=== PATIENT | male | born 1970 ===

== ENCOUNTER 2016-11-16 20:31 | Inpatient (IN) | payer BC, OTHER ==
[~2016-11-16] VITALS: Ht 177.8 cm; Wt 106.1 kg
[2016-11-17] MEDS ORDERED: LORAZEPAM 1 MG TABLET PO PRN ×2 (13:45)
[2016-11-17] MEDS ORDERED: HYDROXYZINE PAMOATE 25 MG CAPSULE PO PRN (13:45)
[2016-11-17] MEDS ORDERED: ACETAMINOPHEN 325 MG TABLET PO PRN (13:45)
[2016-11-17] MEDS ORDERED: MIRALAX 17 GM POWD.PACK PO PRN (13:45)
[2016-11-17] MEDS ORDERED: MAG HYDROX/AL HYDROX/SIMETH 30 ML LIQUID UDC PO PRN (13:45)
[2016-11-17] MEDS ORDERED: LORAZEPAM 2 MG/1 ML VIAL IM PRN (13:45)
[2016-11-17] MEDS ORDERED: CLONIDINE HCL 0.1 MG TABLET PO PRN (13:45)
[2016-11-17] MEDS ORDERED: diphenhydrAMINE 50 MG CAPSULE PO PRN (13:45)
[2016-11-17] MEDS ORDERED: IBUPROFEN 600 MG TABLET PO PRN (13:45)
[2016-11-17] MEDS ORDERED: ONDANSETRON 4 MG/2 ML VIAL IM PRN (13:45)
[2016-11-17] MEDS ORDERED: DICYCLOMINE HCL 20 MG TABLET PO PRN (13:45)
[2016-11-17] MEDS ORDERED: LOPERAMIDE HCL 2 MG CAPSULE PO PRN ×2 (13:45)
[2016-11-17] MEDS ORDERED: ONDANSETRON ODT 4 MG TAB.RAPDIS SL PRN (13:45)
[2016-11-17] MEDS ORDERED: MAGNESIUM HYDROXIDE 30 ML LIQUID UDC PO PRN (13:45)
--- NOTE | 2016-11-17 14:30 | NUR ---
PRE ASSESSMENT Pt presents in the intake room. Pt alert and oriented to name, place, and time. Perrla. skin warm and dry to touch. Explained to pt that medications would have to turned in and held at the pharmacy. VS wnl. Explained to pt about vital signs, assessments, and unit rules. No distress noted.
[2016-11-17] MEDS ORDERED: BUSP15TA3 PO ×2 (14:36→14:39)
[2016-11-17] MEDS ORDERED: CLON1TAB PO (14:38)
[2016-11-17] MEDS ORDERED: ESCI20TA37 PO (14:40)
--- NOTE | 2016-11-17 15:00 | NUR ---
ADMISSION Pt 46 y/o male admitted for marijuana klonopin dependence. Pt stated he was living with , but said that his kicked him out as soon as he arrived here. Pt alert and oriented to name, place, and time. Perrla. Skin warm and dry to touch. Respirations even and unlabored. No hand tremors nOted. Pt appears disheveled and slightly unkempt. Pt anxious and restless during assessment. Pt also with tearful episodes. Pt could not sit still for most of the assessment. Pressured speech noted. Pt states has a psychologist, but did not state his name. He just stated, he just prescribes me meds, but does not really help me. Pt was seen by Dr. Klein. Oriented pt to unit and room. Bed on lowest position with side rails x2 up for safety. Call light within reach. Pt denies any sz hx. substance hx: - marijuana smoke $50 worth daily x1 month; last used 11/16/16 $130 worth in 2 days. ( 36 years totatl) - klonopin po 1mg daily x3 months; last used 11/17/16 1mg ( total 4 years0 medical hx: OCD, anxiety, depression treatment hx: [facility] non 2004 juan menchaca [facility]
[2016-11-17 15:29] LABS: BASOPHILS # (AUTO) 0.1 K/uL (0.0-8.0); BASOPHILS % (AUTO) 0.5 % (0.0-2.0); EOSINOPHILS # (AUTO) 0.4 K/uL (0.0-0.7); EOSINOPHILS % (AUTO) 3.8 % (0.0-7.0); HEMATOCRIT 44.4 % (40-50); HEMOGLOBIN 14.5 G/DL (14.0-18.0); LYMPHOCYTES # (AUTO) 2.7 K/UL (0.8-4.8); LYMPHOCYTES % (AUTO) 26.6 % (20.5-51.5); MEAN CORPUSCULAR HGB CONC 33 g/dL (32.0-37.0); MEAN CORPUSCULAR VOLUME 94.8 FL (82.0-92.0); MONOCYTES # (AUTO) 0.5 K/UL (0.1-1.30); MONOCYTES % (AUTO) 5.3 % (0.0-11.0); NEUTROPHILS # (AUTO) 6.6 K/UL (1.8-8.9); NEUTROPHILS % (AUTO) 63.8 % (38.5-71.5); PLATELET COUNT (AUTO) 258 K/UL (150-450); RED BLOOD CELL COUNT(AUTO) 4.68 MIL/UL (4.7-6.1); RED CELL DISTRIBUTION WIDTH 13.5 % (11.5-14.5); WHITE BLOOD COUNT (AUTO) 10.3 K/UL (4.0-11.2)
[2016-11-17 15:33] LABS: ALANINE AMINOTRANSFERASE 16 U/L (16-63); ALBUMIN 3.9 g/dL (3.4-5.0); ALKALINE PHOSPHATASE 73 U/L (50-136); ASPARTATE AMINOTRANSFERASE 15 U/L (15-37); BILIRUBIN,TOTAL 0.3 mg/dL (0.2-1.0); CALCIUM 8.9 mg/dL (8.5-10.1); CARBON DIOXIDE 28 mmol/L (21-32); CHLORIDE 104 mmol/L (98-107); GFR 80 mL/min (>60); GLUCOSE 126 mg/dL (74-106); MAGNESIUM 2.1 mg/dL (1.8-2.4); POTASSIUM 3.4 mmol/L (3.5-5.1); SODIUM SERUM 141 mmol/L (136-145); TOTAL PROTEIN, SERUM 7.7 g/dL (6.4-8.2); UREA NITROGEN, BLOOD 9 mg/dL (7-18)
[2016-11-17 15:40] LABS: ETHANOL < 3 MG/DL (0-0)
[2016-11-17 15:45] LABS: HIV-1 p24 ANTIGEN NON REACTIVE (NONREACTIVE); HIV-1/2 ANTIBODY NON REACTIVE (NONREACTIVE)
[2016-11-17 16:00] VITALS: BP 115/77
[2016-11-17 16:00] LABS: *AMPHETAMINE, URINE NEGATIVE (NEGATIVE); *BARBITURATE, URINE NEGATIVE (NEGATIVE); *CANNABINOID, URINE POSITIVE (NEGATIVE); *COCCAINE, URINE NEGATIVE (NEGATIVE); *OPIATE, URINE NEGATIVE (NEGATIVE); *PHENCYCLIDINE SCREEN,URINE NEGATIVE (NEGATIVE)
[2016-11-17] MEDS ORDERED: THIAMINE HCL 200 MG/2 ML VIAL IM ONE (16:01)
--- NOTE | 2016-11-17 16:23 | NUR ---
SITTER Pt stated during assessment that he does have SI with no plan. Pt states he is not planning any attempt during his stay here in [facility]. Pt anxious and restless. Pt with tearful episodes. Pt also stated he feels depressed. Pt was seen by Dr. Hernandez. Medications were reconciled by Dr. Hernandez and with new order for 1:1 sitter to monitor for safety, noted and carried.
[2016-11-17] MEDS: busPIRone 10 MG TABLET PO SCH (16:35)
[2016-11-17] MEDS: GABAPENTIN 300 MG CAPSULE PO SCH (16:35)
[2016-11-17] MEDS: LORAZEPAM 1 MG TABLET PO SCH ×2 (16:35→21:05)
[2016-11-17] MEDS: ESCITALOPRAM OXALATE 10 MG TABLET PO SCH (16:35)
[2016-11-17] MEDS ORDERED: Medication Not On Formulary EA (Buspirone Hcl 15 MG) PO SCH (17:00)
--- NOTE | 2016-11-17 18:17 | NUR ---
END OF SHIFT Pt 46 y/o male admitted for marijuana klonopin dependence. Pt alert and oriented to name, place, and time. Perrla. Skin warm and dry to touch. Respirations even and unlabored. No hand tremors nOted. Pt appears disheveled and slightly unkempt. Pt anxious and restless during assessment. Pt also with tearful episodes at times earlier. Pressured speech noted. Bed on lowest position with side rails x2 up for safety. Call light within reach.
[2016-11-17 20:00] VITALS: BP 129/75
--- NOTE | 2016-11-17 20:00 | NUR ---
1999 Patient received awake, alert and sitting in bedside chair, speaking loudly and animatedly to 1 to 1 staff at bedside. Patient responds to nurse's greeting and introduction with a smile and, " Hi! How are you doing?!" Patient is oriented to person, place, day, date, time and his personal situation. Patient's color is pink and his skin is warm, dry and intact. Lungs are clear bilaterally and active bowel sounds are noted X 4 abdominal Quads, per auscultation. Patient states that he has just returned to his room # 316 from [facility] in recreation room and he states, " Oh, I'm going to do everything that I'm supposed to do while I'm here". Patient states further that he is eating his regular diet trays and taking fluids ad domenic with no real gastric issues so far. Vital signs are: 98.2-93-20 129/75, O2 sat 97%, CIWA 5. Patient denies any suicidal ideation. Patient states, " Oh, I just said that, at first when everything hit rock bottom, but I'm feeling much better now and I have no thoughts of any suicide or anything like that." Patient then verbalized at length to nurse, about his long time marijuana use, his family and their support, his job, where everybody around him also smokes marijuana, his "feelings of guilt" about his drug use around his son, and other various concerns that he has. Calm reassurances and positive encouragement then given to patient, who then said, " Oh thank you, I'm really starting to feel better, and I know that I made the right choice in coming here". Patient was admitted today, 11/17/16 for Marijuana and Klonopin withdrawal and he has been started on a 5-Day Ativan medication taper, which he is tolerating well so far. Patient is friendly, cooperative and verbally appropriate when interacting with nurse, though he is a bit hyperverbal and loud when speaking. Patient denies any pain or other discomforts and he voices no complaints or requests for anything. Bed is locked and in lowest position, bed rails are up X 1 and call light within patient's easy reach.
[2016-11-17] MEDS ORDERED: GABAPENTIN 300 MG CAPSULE PO SCH (21:00)
[2016-11-18] VITALS: BP 121/71
[2016-11-18 04:00] VITALS: BP 128/77
--- NOTE | 2016-11-18 06:30 | NUR ---
0630 Patient slept a total of 4 hours and he had 1 void and no stools. Total intake was 710 ml p.o. V/SS afebrile. CIWA at 0400 is 2. Patient had no Prn medications given this shift. No suicidal ideation noted. 1 to 1 staff continues at bedside. Patient was downstairs on hospital patio for approximately 45 minutes during shift, to get some air. Patient does not smoke, he states. Patient is presently sleeping soundly in supine position of comfort with eyes closed and respirations deep, unlabored at 14.
--- NOTE | 2016-11-18 07:06 | NUR ---
Start of Shift Endorsement received from nightshift nurse. Pt is a 46 y/o male admitted for Klonopin and Marijuana dependence. PT has been placed on a 5 day Ativan taper. PT is tolerating the taper well, pt is mildly withdrawing at this time AEB CIWA 2. PT is on a 1:1 at this time for safety reasons. Pt did not receive any PRN medications. Reports sleeping 6 hours. VS WNL. Full Code. PT is alert and oriented x4. Pt is in STABLE condition at this time. Remains compliant with medication and diet regimen. All needs have been met, All safety measures in place per hospital policy. Bed in lowest position, side rails up x2, call-light within reach. Will continue to monitor
[2016-11-18 08:00] VITALS: BP 122/70
[2016-11-18] MEDS: ESCITALOPRAM OXALATE 10 MG TABLET PO SCH (08:53)
[2016-11-18] MEDS: busPIRone 10 MG TABLET PO SCH ×2 (08:53→17:31)
[2016-11-18] MEDS: GABAPENTIN 300 MG CAPSULE PO SCH ×3 (08:53→20:49)
[2016-11-18] MEDS: LORAZEPAM 1 MG TABLET PO SCH ×3 (08:54→20:49)
[2016-11-18] MEDS: FOLIC ACID 1 MG TABLET PO SCH (08:54)
[2016-11-18] MEDS: MULTIVITAMINS,THERAPEUTIC TABLET PO SCH (08:54)
[2016-11-18] MEDS: DOCUSATE SODIUM 250 MG CAPSULE PO SCH (08:54)
[2016-11-18] MEDS: THIAMINE HCL 100 MG TABLET PO SCH (08:54)
[2016-11-18] MEDS ORDERED: TUBERCULIN,PURIF.PROT.DERIV. 5 TU/0.1 ML TEST ID ONE (09:00)
[2016-11-18 12:00] VITALS: BP 115/64
[2016-11-18 16:00] VITALS: BP 115/70
[2016-11-18] MEDS: DIVALPROEX 250 MG TABLET.DR PO SCH (17:32)
--- NOTE | 2016-11-18 18:56 | NUR ---
End of Shift Endorsement given to nightshift nurse. Pt is a 46 y/o male admitted for Klonopin and Marijuana dependence. PT has been placed on a 5 day Ativan taper. PT is tolerating the taper well, pt is mildly withdrawing at this time AEB CIWA 1. PT is on a 1:1 at this time for safety reasons. Pt did not receive any PRN medications. Pt participated in groups and activities. Pt denies any ideations of self harm at this time. Intake: 1450ml, Void x3, BM x0. VS WNL. Full Code. PT is alert and oriented x4. Pt is in STABLE condition at this time. Remains compliant with medication and diet regimen. All needs have been met, All safety measures in place per hospital policy. Bed in lowest position, side rails up x2, call-light within reach. Will continue to monitor
--- NOTE | 2016-11-18 19:30 | NUR ---
START OF SHIFT Pt is a 46 y/o male admitted for Klonopin and Marijuana dependency. Pt placed on a 5 day Ativan taper, tolerating the taper well. No A/R noted. Pt is on 1:1 close observation for safety . Pt did not receive any PRN medications per day shift, participated in groups and activities. Pt is alert and oriented x4, compliant with medication and diet regimen.Received in stable condition.No s/s of distress noted. All needs met. All safety measures in place per hospital policy. Bed in lowest position, side rails up x2, call-light within reach. Will continue to monitor
[2016-11-18 20:00] VITALS: BP 147/96
[2016-11-19] VITALS: BP 117/69
[2016-11-19 04:00] VITALS: BP 115/70
--- NOTE | 2016-11-19 06:45 | NUR ---
END OF SHIFT Pt is a 46 y/o male admitted for Klonopin and Marijuana dependency. Pt placed on a 5 day Ativan taper, tolerating the taper well. No A/R noted. Pt is on 1:1 close observation for safety . Pt did not receive any PRN medications. Pt is alert and oriented x4, compliant with medication and diet regimen.Last CIWA=1.Pt slept 6 hrs,fluid intake was 1420 mls,voided x 4,BM x 1. All needs met, All safety measures in place per hospital policy. Bed in lowest position, side rails up x2, call-light within reach. Will continue to monitor
--- NOTE | 2016-11-19 07:00 | NUR ---
Start of Shift Endorsement received from nightshift nurse. Pt is a 46 y/o male admitted for Klonopin and Marijuana dependence. PT has been placed on a 5 day Ativan taper. PT is tolerating the taper well, pt is mildly withdrawing at this time AEB CIWA 1 at 0400. PT is on a 1:1 at this time for safety reasons until farther evaluation by Dr. Hernandez. Pt did not receive any PRN medications. Reports sleeping 6 hours. VS WNL. Full Code. PT is alert and oriented x4. Pt is in STABLE condition at this time. Remains compliant with medication and diet regimen. All needs have been met, All safety measures in place per hospital policy. Bed in lowest position, side rails up x2, call-light within reach. Will continue to monitor
[2016-11-19 08:00] VITALS: BP 125/65
[2016-11-19] MEDS: MULTIVITAMINS,THERAPEUTIC TABLET PO SCH (08:23)
[2016-11-19] MEDS: ESCITALOPRAM OXALATE 10 MG TABLET PO SCH (08:23)
[2016-11-19] MEDS: busPIRone 10 MG TABLET PO SCH ×2 (08:23→17:16)
[2016-11-19] MEDS: LORAZEPAM 1 MG TABLET PO SCH ×4 (08:23→21:08)
[2016-11-19] MEDS: FOLIC ACID 1 MG TABLET PO SCH (08:23)
[2016-11-19] MEDS: DOCUSATE SODIUM 250 MG CAPSULE PO SCH (08:23)
[2016-11-19] MEDS: THIAMINE HCL 100 MG TABLET PO SCH (08:23)
[2016-11-19] MEDS: GABAPENTIN 300 MG CAPSULE PO SCH ×3 (08:23→21:09)
[2016-11-19] MEDS: DIVALPROEX 250 MG TABLET.DR PO SCH ×3 (08:24→17:16)
--- NOTE | 2016-11-19 09:59 | NUR ---
Clinician encouraged client to attend groups today. Client said he would do so.
[2016-11-19 12:00] VITALS: BP 108/75
--- NOTE | 2016-11-19 13:50 | NUR ---
Client did not attend morning group.
[2016-11-19 16:00] VITALS: BP 122/68
--- NOTE | 2016-11-19 19:17 | NUR ---
End of Shift Endorsement given to nightshift nurse. Pt is a 46 y/o male admitted for Klonopin and Marijuana dependence. PT has been placed on a 5 day Ativan taper. PT is tolerating the taper well, pt is mildly withdrawing at this time AEB CIWA 1. Pt has been removed from 1:[address] Hernandez. Pt did not receive any PRN medications. Pt spent the day in his room sleeping reporting that he just wanted to rest. Encouraged pt to drink more fluids. Pt denies any ideations of self harm at this time. Intake: 750ml, Void x2, BM x0. VS WNL. Full Code. PT is alert and oriented x4. Pt is in STABLE condition at this time. Remains compliant with medication and diet regimen. All needs have been met, All safety measures in place per hospital policy. Bed in lowest position, side rails up x2, call-light within reach. Will continue to monitor
[2016-11-19 20:00] VITALS: BP 128/83
--- NOTE | 2016-11-19 20:00 | NUR ---
Start of Shift Pt is a 46-year old, male, admitted for Klonopin and Marijuana dependence. Pt placed on a 5-day Ativan taper, started 11/17/2016 and with no adverse side effects noted. With PMHx of Anxiety, Depression and OCD. Pt with NKA, is on Regular Diet and Full Code. Pt is AAOx4, with mild anxiety noted at this time. No Suicidal Ideation nor Homicidal Ideation noted. No SOB noted, not in respi distress. Pt is ambulatory with steady gait and with intact skin. Fall, universal and safety prec in place. Call light within reach. Kept pt warm, dry and comfortable. All needs met. Latest CIWA=1. Will continue to monitor.
[2016-11-20] VITALS: BP 114/79
[2016-11-20 04:00] VITALS: BP 120/68
[2016-11-20] MEDS ORDERED: POTASSIUM CHLORIDE 20 MEQ TAB.PRT.SR PO ONE (06:00)
--- NOTE | 2016-11-20 07:06 | NUR ---
End of Shift Pt is a 46-year old, male, admitted for Klonopin and Marijuana dependence. Pt placed on a 5-day Ativan taper, started 11/17/2016 and with no adverse side effects noted. With PMHx of Anxiety, Depression and OCD. Pt with NKA, is on Regular Diet and Full Code. Pt is AAOx4, with mild anxiety noted at this time. No Suicidal Ideation nor Homicidal Ideation noted. No SOB noted, not in respi distress. Pt is ambulatory with steady gait and with intact skin. Fall, universal and safety prec in place. Call light within reach. Kept pt warm, dry and comfortable. All needs met. Latest CIWA=1, slept for 11 hours. Endorsed to AM shift nurse for continuity of care.
--- NOTE | 2016-11-20 07:07 | NUR ---
Start of Shift Endorsement received from nightshift nurse. Pt is a 46 y/o male admitted for Klonopin and Marijuana dependence. PT has been placed on a 5 day Ativan taper. PT is tolerating the taper well, pt is mildly withdrawing at this time AEB CIWA 1 at midnight. Pt did not receive any PRN medications. Reports sleeping 11 hours. VS WNL. Full Code. PT is alert and oriented x4. Pt is in STABLE condition at this time. Remains compliant with medication and diet regimen. All needs have been met, All safety measures in place per hospital policy. Bed in lowest position, side rails up x2, call-light within reach. Will continue to monitor
[2016-11-20 08:00] VITALS: BP 143/92
[2016-11-20] MEDS: MULTIVITAMINS,THERAPEUTIC TABLET PO SCH (08:39)
[2016-11-20] MEDS: GABAPENTIN 300 MG CAPSULE PO SCH ×3 (08:39→20:51)
[2016-11-20] MEDS: FOLIC ACID 1 MG TABLET PO SCH (08:39)
[2016-11-20] MEDS: LORAZEPAM 1 MG TABLET PO SCH ×3 (08:39→20:50)
[2016-11-20] MEDS: DOCUSATE SODIUM 250 MG CAPSULE PO SCH (08:39)
[2016-11-20] MEDS: DIVALPROEX 250 MG TABLET.DR PO SCH ×2 (08:39→13:36)
[2016-11-20] MEDS: THIAMINE HCL 100 MG TABLET PO SCH (08:39)
[2016-11-20] MEDS: busPIRone 10 MG TABLET PO SCH ×2 (08:39→17:06)
[2016-11-20] MEDS: ESCITALOPRAM OXALATE 10 MG TABLET PO SCH (08:39)
[2016-11-20 12:00] VITALS: BP 126/87
[2016-11-20 16:00] VITALS: BP 112/74
[2016-11-20] MEDS ORDERED: DIVALPROEX 250 MG TABLET.DR PO SCH (17:00)
[2016-11-20] MEDS: DIVALPROEX 500 MG TABLET.DR PO SCH (17:12)
--- NOTE | 2016-11-20 19:06 | NUR ---
End of Shift Endorsement given to nightshift nurse. Pt is a 46 y/o male admitted for Klonopin and Marijuana dependence. PT has been placed on a 5 day Ativan taper. PT is tolerating the taper well, pt is mildly withdrawing at this time AEB CIWA 1. Pt participated in activities and group. Encouraged the pt to go to groups and activities. Withheld 1500 Ativan due to pt being asleep. Pt did not receive any PRN medications. Pt denies any suicidal or homicidal ideations. Intake: 1210ml, Void x4, BM x2. VS WNL. Full Code. PT is alert and oriented x4. Pt is in STABLE condition at this time. Remains compliant with medication and diet regimen. All needs have been met, All safety measures in place per hospital policy. Bed in lowest position, side rails up x2, call-light within reach. Will continue to monitor
--- NOTE | 2016-11-20 19:15 | NUR ---
RN note Patient came to the station and verbalized "I tried to hurt myself just right now. This feeling comes and goes." Patient explained that he used his glasses to cut himself. Redness noted on the left forearm, no open skin noted. Informed Dr. Klein and Dr. Hernandez. Both MDs ordered 1:1 sitter for safety. Vital signs check and as follows: CC=939/84, P=93, T=98.7, RR=22, O2 sat on RA=98%. No SOB noted. Sweating noted on patient. Made pt sit on the couch inside his room with sitter at bedside. Provided teachings and reassurance. Pt noted to be anxious, no aggressive behavior noted. Will closely monitor.
--- NOTE | 2016-11-20 19:30 | NUR ---
RN note Called [facility] of Crisis Team per Dr. Hernandez's order for evaluation.
--- NOTE | 2016-11-20 19:45 | NUR ---
Start of Shift Patient is a 46-year old, male, admitted for Klonopin and Marijuana dependence. Pt placed on a 5-day Ativan taper, started 11/17/2016 and with no adverse side effects noted. With PMHx of Anxiety, Depression and OCD. Pt with NKA, is on Regular Diet and Full Code. Pt is AAOx4, with mild anxiety noted at this time. No SOB noted, not in respi distress. Pt is ambulatory with steady gait and with intact skin. Fall, universal and safety prec in place. Call light within reach. Kept pt warm, dry and comfortable. All needs met. Latest CIWA=3. On 1:1 for Safety, awaiting Minh of Crisis Team for evaluation. Will continue to monitor.
--- NOTE | 2016-11-20 19:55 | NUR ---
RN note [facility] of Crisis Team at patient's bedside, doing assessment and evaluation.
[2016-11-20 20:00] VITALS: BP 127/81
--- NOTE | 2016-11-20 20:30 | NUR ---
RN note post-Crisis Team Eval Per Minh of Crisis Team, patient will continue to be on 1:1 sitter for safety. Per Minh, "patient is remorseful and agreed to be compliant with plan of care." No hold ordered by Dr. Hernandez. Dr. Sean Klein made aware.
[2016-11-21] VITALS: BP 134/83
[2016-11-21 03:06] LABS: HCV AB <0.1 s/co ratio (0.0-0.9); HEPATITIS B CORE AB, IgM Negative (Negative); HEPATITIS B SURFACE AG Negative (Negative)
[2016-11-21 04:00] VITALS: BP 127/81
--- NOTE | 2016-11-21 07:01 | NUR ---
End of Shift Patient is a 46-year old, male, admitted for Klonopin and Marijuana dependence. Pt placed on a 5-day Ativan taper, started 11/17/2016 and with no adverse side effects noted. With PMHx of Anxiety, Depression and OCD. Pt with NKA, is on Regular Diet and Full Code. Pt is AAOx4, with mild anxiety noted at this time. No SOB noted, not in respi distress. Pt is ambulatory with steady gait and with intact skin. Fall, universal and safety prec in place. Call light within reach. Kept pt warm, dry and comfortable. All needs met. Latest CIWA=3, slept for 7 hours. On 1:1 for Safety. No suicidal ideation nor homicidal ideation at this time. Endorsed to AM shift nurse for continuity of care.
--- NOTE | 2016-11-21 07:33 | NUR ---
Start of shift note; Received report from night nurse. Patient is a 46 year male admitted on 11/17/16 for Benzodiazepine dependence. Patient reported history of OCD, anxiety, depression. Full code status, regular diet,. NKA.Patient was placed on a 5 day Ativan taper. Patient reported history of OCD, anxiety and depression. Patient slept for 7 hours with last CIWA score of 3 at 0400. Patient is currently on 1:1 supervision for safety. Will continue to monitor patient.
[2016-11-21 08:00] VITALS: BP 130/76
[2016-11-21] MEDS: ESCITALOPRAM OXALATE 10 MG TABLET PO SCH (09:00)
[2016-11-21] MEDS ORDERED: LORAZEPAM 1 MG TABLET PO SCH (09:00)
[2016-11-21] MEDS: DIVALPROEX 500 MG TABLET.DR PO SCH ×2 (09:00→16:19)
[2016-11-21] MEDS: DOCUSATE SODIUM 250 MG CAPSULE PO SCH (09:00)
[2016-11-21] MEDS: GABAPENTIN 300 MG CAPSULE PO SCH ×2 (09:00→14:09)
[2016-11-21] MEDS: THIAMINE HCL 100 MG TABLET PO SCH (09:00)
[2016-11-21] MEDS: FOLIC ACID 1 MG TABLET PO SCH (09:00)
[2016-11-21] MEDS: MULTIVITAMINS,THERAPEUTIC TABLET PO SCH (09:01)
[2016-11-21] MEDS: busPIRone 10 MG TABLET PO SCH ×2 (09:01→16:20)
--- NOTE | 2016-11-21 10:00 | NUR ---
Nurse note; Re-evaluated patient, patient denies suicidal/homicidal ideations. Patient remains on 1:1 sitter for safety.
[2016-11-21 12:00] VITALS: BP 126/89
--- NOTE | 2016-11-21 12:28 | NUR ---
Met with client to assess risk for self-harm suicide. Client stated "I don't want to live anymore" "I want to . I want God to take me" "I have nothing to live for, I have failed at everything". Client said if his glasses that he tried to cut himself with had been made of glass and not plastic he would have cut himself with the intent to . Clinician asked the client if he wanted to hurt himself today and his response was "Everything is made of plastic. 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 Client was crying throughout this exchange and talking about how he had hurt his and that he knew his marriage was over. Client has therefore made several statements which would indicate high risk. Dr. Thurston and Dr. Klein and Lilia Benavides [facility] informed in person. PAMELA Faulkner
--- NOTE | 2016-11-21 12:30 | NUR ---
Nurse note; Re-assessed patient. Patient denies suicidal ideation during nursing interview, although patient verbalized feeling of depression. Therapist reported that patient verbalized suicidal ideations during therapy. Psychiatrist and MD notified.
--- NOTE | 2016-11-21 14:00 | NUR ---
Psychiatrist communication; Dr. Hernandez currently on unit, MD evaluated patient. Per MD to transfer patient to a psych unit possibly at [facility]. Dr. Klein notified.
[2016-11-21 15:32] LABS: *AMPHETAMINE, URINE NEGATIVE (NEGATIVE); *BARBITURATE, URINE NEGATIVE (NEGATIVE); *CANNABINOID, URINE POSITIVE (NEGATIVE); *COCCAINE, URINE NEGATIVE (NEGATIVE); *OPIATE, URINE NEGATIVE (NEGATIVE); *PHENCYCLIDINE SCREEN,URINE NEGATIVE (NEGATIVE)
[2016-11-21 16:00] VITALS: BP 128/91
--- NOTE | 2016-11-21 17:50 | NUR ---
Nurse note; Patient is medically cleared to transfer to [facility] unit in [facility]. Detailed report given to nurse Luma Palumbo. Transportation set up by charge nurse.
--- NOTE | 2016-11-21 19:04 | NUR ---
End of shift note; Patient is a 46 year male admitted on 11/17/16 for Benzodiazepine dependence. Patient reported history of OCD, anxiety, depression. Full code status, regular diet,. NKA.Patient was placed on a 5 day Ativan taper. Patient reported history of OCD, anxiety and depression.Patient is currently on 1:1 supervision for safety. Patient is scheduled to transfer to [facility] in [facility] anytime tonight (pending transportation). Detailed report given to covering nurse. Met all needs.
--- NOTE | 2016-11-21 19:20 | NUR ---
Discharge note; Patient is AOX4. All patient's belongings, valuables, medications given to patient. Patient was accompanied by ambulance transportation to be transferred to [facility]. Met patient's needs.
== END 2016-11-21 19:15 | DRG 895 ==
LOC: SRC 11-17 12:59
PROVIDERS: ADMIT Internal Medicine; ATTEND Internal Medicine
PROC: HZ2ZZZZ Detoxification Services for Substance Abuse Treatment (ICD-10-PCS; principal; 2016-11-17)
PROC: HZ41ZZZ Group Counseling for Substance Abuse Treatment, Behavioral (ICD-10-PCS; 2016-11-18)
PROC: HZ31ZZZ Individual Counseling for Substance Abuse Treatment, Behavioral (ICD-10-PCS; 2016-11-19)
DX: F13.230 Sedative, hypnotic or anxiolytic dependence with withdrawal, uncomplicated (principal); F31.4 Bipolar disorder, current episode depressed, severe, without psychotic features; F42.9 Obsessive-compulsive disorder, unspecified; F41.9 Anxiety disorder, unspecified; E87.6 Hypokalemia; Z81.8 Family history of other mental and behavioral disorders; F12.10 Cannabis abuse, uncomplicated; X78.8XXA Intentional self-harm by other sharp object, initial encounter; Y92.230 Patient room in hospital as the place of occurrence of the external cause
CPT/HCPCS: 36415; 70030-TC; 71010; 80164; 80307; 80349; 83735; 84443; 85025; 86592; 86705; 86803; 87340; 87806; G6040-TC; J3411; J3490